=== PATIENT | female | born 1940 | race Caucasian/White ===

== ENCOUNTER 2017-12-11 19:57 | Emergency (ER) | payer OTHER ==
[2017-12-11 20:09] VITALS: BMI 25.1
[2017-12-11 20:34] LABS: BASOPHILS # (AUTO) 0.1 X10^3/uL (0.0-0.1); BASOPHILS % (AUTO) 0.7 % (0.2-1.0); EOSINOPHILS # (AUTO) 0.1 x10^3/uL (0.0-0.2); EOSINOPHILS % (AUTO) 1.6 % (0.9-2.9); HEMATOCRIT 40.6 % (36.0-47.0); LYMPHOCYTES # (AUTO) 1.3 X10^3/uL (1.3-2.9); LYMPHOCYTES % (AUTO) 14.4 % (21.0-51.0); MEAN CORPUSCULAR HEMOGLOBIN 30.5 pg (27.0-34.0); MEAN CORPUSCULAR HGB CONC 34.6 g/dL (33.0-35.0); MEAN CORPUSCULAR VOLUME 88.3 fL (80.0-100.0); MEAN PLATELET VOLUME 8.3 fL (7.4-11.0); MONOCYTES # (AUTO) 0.6 x10^3/uL (0.3-0.8); MONOCYTES % (AUTO) 6.3 % (0.0-13.0); PLATELET COUNT 255 X10^3/uL (150.0-450.0); RED BLOOD COUNT 4.61 X10^6/uL (3.5-5.4); RED CELL DISTRIBUTION WIDTH 13.9 % (11.6-16.5); WHITE BLOOD COUNT 9.2 X10^3/uL (3.6-10.0)
[2017-12-11 20:51] LABS: BLOOD UREA NITROGEN 19 mg/dL (7-18); CALCIUM 9.1 mg/dL (8.5-10.1); CARBON DIOXIDE 26.9 mmol/L (21-32); CHLORIDE 105 mmol/L (98-107); COR NA(FOR HYPERGLY) 142 mmol/L (136-145); CREATININE 1.28 mg/dL (0.55-1.02); SODIUM 141 mmol/L (136-145); TROPONIN I < 0.02 ng/mL (0-1.5); eGFR BLACK RACES 52 (>60); eGFR NON BLACK RACES 43 (>60)
[2017-12-11 20:53] LABS: ALANINE AMINOTRANSFERASE 27 Units/L (12-78); ALBUMIN 4.1 g/dL (3.4-5.0); ALKALINE PHOSPHATASE 92 Units/L (46-116); ASPARTATE AMINO TRANSFERASE 19 Units/L (15-37); CKMB % 1.6 % (<4); CREATINE KINASE 69 Units/L (26-192); CREATINE KINASE MB 1.1 ng/mL (0-4.0); MAGNESIUM 1.9 mg/dL (1.7-2.9); TOTAL PROTEIN 8.6 g/dL (6.4-8.2)
--- NOTE | 2017-12-11 20:53 | CT ---
HISTORY: Episode Study: CT brain without contrast Comparison: None Technique: Multiple axial images of the brain were obtained from the skull base to the vertex without administra tion of IV contrast. Dose reduction techniques including Automated Exposure Control (AEC) and adjust ment of mA and kV were utilized. Findings: There is atrophy and nonspecific white matter hypoattenuation likely related to microvascular ischemi c changes. Small hypodensities are noted in the region of the caudate head and bilateral internal cap sules suggesting old lacunar infarcts. No evidence of acute hemorrhage, midline shift, mass effect or abnormal extra-axial fluid collection. The ventricular system is symmetric and nondilated. The sof t tissues and osseous structures are unremarkable. The visualized paranasal sinuses are clear. IMPRESSION: 1. Cerebral volume loss and microvascular ischemic changes. No acute intracranial abnormality is iden tified. Reported By:
[2017-12-11] MEDS ORDERED: XYLOCAINE 1 % (PLAIN) ONE (21:03)
[2017-12-11 21:06] LABS: BILIRUBIN,URINE NEGATIVE (NEGATIVE); BLOOD/HEMOGLOBIN,URINE 4+ (NEGATIVE); GLUCOSE, URINE NEGATIVE (NEGATIVE); KETONES,URINE NEGATIVE (NEGATIVE); LEUKOCYTE ESTERASE ,URINE 2+ (NEGATIVE); NITRITES,URINE NEGATIVE (NEGATIVE); PROTEIN,URINE 3+ (NEGATIVE); UROBILINOGEN,URINE NORMAL (NORMAL)
[2017-12-11 21:15] LABS: APPEARANCE,URINE HAZY (CLEAR); COLOR,URINE YELLOW (YELLOW)
[2017-12-11 21:16] LABS: AMORPHOUS SEDIMENT,UR 2+ /HPF (NEGATIVE); BACTERIA,URINE 2+ /HPF (NEGATIVE); SQUAMOUS EPITHELIAL CELL,UR FEW /HPF (NEGATIVE)
[2017-12-11] MEDS ORDERED: NEOSPORIN OINT TOP ONE (21:27)
[2017-12-11] MEDS ORDERED: NEOSPORIN OINT ONE (21:32)
[2017-12-11] MEDS ORDERED: ADACEL TDaP IM ONE ×2 (21:35→21:36)
--- NOTE | 2017-12-11 21:41 | DR.GENAD ---
HPI - PCP Primary Care Physician: MARCELLUS - Complaint/Symptoms Chief Complaint Doctors Comments: History as stated. Chief Complaint:: PT TO ED WITH A SYNCOPAL EPISODE PT WAS FISHING AND PASSED OUT AFTER HOOKING HERSELF WITH A FISHHOOK IN THE LT HAND 3RD DIGIT PT STATES" WHEN IT HOOKED ME I GOT REAL WEAK AND FELT LIKE I WAS GOING TO BE SICK AND I PASSED OUT" - Source History Provided: Patient - Mode of Arrival Mode of Arrival: EMS - Timing Onset of Chief Complaint: 12/11/17 PMH - PMH Past Medical History: No Past Surgical History: No - Family History History of Family Medical Conditions: No - Social History Does patient currently use any type of tobacco product: No Have you used tobacco products in the last 12 months: No Type of Tobacco Use: None Does any household member use tobacco: No Alcohol Use: None Do you use any recreational Drugs:: No Lives With: Alone Lives Where: Home - infectious screening In the last 2 months have you had wt loss of >10#?: NO Have you had fever, night sweats or hemotysis?: No Have you traveled outside the country in the last 6 months?: No Isolation: Standard ROS - Review of Systems Eyes: No Symptoms Reported ENTM: No Symptoms Reported Respiratoy: No Symptoms Reported Cardiovascular: No Symptoms Reported Gastrointestinal/Abdominal: No Symptoms Reported Neurological: No Symptoms Reported Musculoskeletal: No Symptoms Reported Integumentary: No Symptoms Reported, Other (foreign body in 4th digit of left hand) Hematologic/Lymphatic: No Symptoms Reported Endocrine: No Symptoms Reported Psychiatric: No Symptoms Reported All Other Systems: Reviewed and Negative PE - Vital Signs Vitals: Temperature 98.2 F Pulse Rate 80 Respiratory Rate 20 Blood Pressure 138/66 O2 Sat by Pulse Oximetry 98 - General Limitations: No Limitations General Appearance: Alert, In No Apparent Distress - Head Head Exam: Normal Inspection, Atraumatic - Eyes Eye exam: Normal Appearance, PERRL, EOMI - ENT ENT Exam: Normal Exam External Ear Exam: Normal External Inspection TM/Canal Exam: Bilateral Normal Nose Exam: Normal Nose Exam Mouth Exam: Normal Inspection Throat Exam: Normal Inspection - Neck Neck Exam: Normal Inspection - Chest Chest Inspection: Normal Inspection - Respiratory Respiratory Exam: Normal Lung Sounds Bilat Respiratory Exam: Bilateral Clear to Auscultation - Cardiovascular Cardiovascular Exam: Regular Rate, Normal Rhythm - Abdominal Exam Abdominal Exam: Normal Inspection, Normal Bowel Sounds Abdominal Tenderness: negative: RUQ, RLQ, LUQ, LLQ, Epigastrium, Suprapubic, Diffuse, Mild, Moderate, Severe, Other - Extremities Extremities Exam: Normal Inspection, Other (Fish hoot imbeded in 4th digit of left hand proximally) - Back Back Exam: Normal Inspection - Neurologic Neurological Exam: Alert, Oriented X3, CN II-XII Intact - Psychiatric Psychiatric Exam: Normal Affect, Normal Mood - Skin Skin Exam: Warm, Dry, Intact ROR - Labs Reviewed Result Diagrams: 12/11/17 20:23 12/11/17 20: Laboratory: WBC 9.2 X10^3/uL (3.6-10.0) 12/11/17 20: RBC 4.61 X10^6/uL (3.5-5.4) 12/11/17 20: Hgb 14.0 g/dL (12.0-16.0) 12/11/17 20: Hct 40.6 % (36.0-47.0) 12/11/17: MCV 88.3 fL (80.0-100.0) 12/11/17 20: MCH 30.5 pg (27.0-34.0) 12/11/17: MCHC 34.6 g/dL (33.0-35.0) 12/11/17: RDW 13.9 % (11.6-16.5) 12/11/17: Plt Count 255 X10^3/uL (150.0-450.0) 12/11/17: MPV 8.3 fL (7.4-11.0) 12/11/17: Neut % (Auto) 77.0 % (42.0-75.0) H 12/11/17: Lymph % (Auto) 14.4 % (21.0-51.0) L 12/11/17: [place] % (Auto) 6.3 % (0.0-13.0) 12/11/17 20: Eos % (Auto) 1.6 % (0.9-2.9) 12/11/17: Baso % (Auto) 0.7 % (0.2-1.0) 04/02/18 20:23 Neut # (Auto) 7.0 x10^3/uL (2.2-4.8) H 12/11/17 20:23 Lymph # (Auto) 1.3 X10^3/uL (1.3-2.9) 12/11/17 20:23 [place] # (Auto) 0.6 x10^3/uL (0.3-0.8) 12/11/17 20:23 Eos # (Auto) 0.1 x10^3/uL (0.0-0.2) 12/11/17 20:23 Baso # (Auto) 0.1 X10^3/uL (0.0-0.1) 12/11/17 20:23 Absolute Nucleated RBC 0.1 /100WBC 12/11/17 20: INR Target Range - 12/11/17: INR 1.01 (0.8-1.3) 12/11/17 20:23 APTT 30.3 SECONDS (22.9-36.5) 12/11/17 20: PTT Comment - 12/11/17 20:23 Sodium 141 mmol/L (136-145) 12/11/17 20:23 Corrected Sodium 142 mmol/L (136-145) 12/11/17 20:23 Potassium 4.1 mmol/L (3.5-5.1) 12/11/17 20:23 Chloride 105 mmol/L (98-107) 12/11/17 20:23 Carbon Dioxide 26.9 mmol/L (21-32) 12/11/17 20:23 BUN 19 mg/dL (7-18) H 12/11/17 20:23 Creatinine 1.28 mg/dL (0.55-1.02) H 12/11/17 20:23 Est GFR (MDRD) Af Amer 52 (>60) L 12/11/17 20:23 Est GFR (MDRD) Non-Af 43 (>60) L 12/11/17 20:23 Glucose 122 mg/dL (65-99) H 12/11/17 20:23 Calcium 9.1 mg/dL (8.5-10.1) 12/11/17 20:23 Corrected Calcium TNP 12/11/17 20:23 Magnesium 1.9 mg/dL (1.7-2.9) 12/11/17 20:23 Total Bilirubin 0.60 mg/dL (0.2-1.0) 12/11/17 20:23 AST 19 Units/L (15-37) 12/11/17 20:23 ALT 27 Units/L (12-78) 12/11/17 20:23 Alkaline Phosphatase 92 Units/L (46-116) 12/11/17 20:23 Creatine Kinase 69 Units/L (26-192) 12/11/17 20:23 CK-MB (CK-2) 1.1 ng/mL (0-4.0) 12/11/17 20:23 CK/CKMB % Calc 1.6 % (<4) 12/11/17 20: Troponin I < 0.02 ng/mL (0-1.5) 12/11/17 20:23 Total Protein 8.6 g/dL (6.4-8.2) H 12/11/17 20:23 Albumin 4.1 g/dL (3.4-5.0) 12/11/17 20: Globulin 4.5 g/dL (2.5-4.5) 12/11/17 20:23 Albumin/Globulin Ratio 0.9 Ratio (1.1-2.1) L 12/11/17 20:23 Specimen Type Clean catch urine 12/11/17 20:53 Urine Color Yellow (YELLOW) 12/11/17 20:53 Urine Appearance Hazy (CLEAR) 12/11/17 20:53 Urine pH 6.0 (5.0 - 8.0) 12/11/17 20:53 Ur Specific [place] 1.010 (1.000-1.030) 12/11/17 20:53 Urine Protein 3+ (NEGATIVE) 12/11/17 20:53 Urine Glucose (UA) Negative (NEGATIVE) 12/11/17 20:53 Urine Ketones Negative (NEGATIVE) 12/11/17 20:53 Urine Occult Blood 4+ (NEGATIVE) 12/11/17 20:53 Urine Nitrite Negative (NEGATIVE) 12/11/17 20:53 Urine Bilirubin Negative (NEGATIVE) 12/11/17 20:53 Urine Urobilinogen Normal (NORMAL) 12/11/17 20:53 Ur Leukocyte Esterase 2+ (NEGATIVE) 12/11/17 20:53 Urine RBC 5-10 /HPF (NONE SEEN) 12/11/17 20:53 Urine WBC 10-20 /HPF (NONE SEEN) 12/11/17 20:53 Ur Squamous Epith Cells Few /HPF (NEGATIVE) 12/11/17 20:53 Amorphous Sediment 2+ /HPF (NEGATIVE) 12/11/17 20:53 Urine Bacteria 2+ /HPF (NEGATIVE) 12/11/17 20:53 Ur Culture Indicated? Yes/culture set up 12/11/17 20:53 Procedures - Procedure Comments Procedures: Local anesthesia with 1% lidocaine, removed w/o difficulity - Splinting Pre-Made Type: metal (fish hook 4th digit of left hand -) - Diagnosis Discharge Problem: foreign body left hand 4th digit - Discharge Plan Condition: Stable - Follow ups/Referrals Follow ups/Referrals: VERITO GERMAIN [Primary Care Provider] - 3 days - Instructions
[2017-12-11 21:47] VITALS: BP 160/77
--- NOTE | 2017-12-11 22:28 | RAD ---
HISTORY: Syncopal episode Study: Single view chest Comparison:None Findings: Single portable view is submitted. No infiltrate, effusion or pneumothorax identified. The cardiac an d mediastinal contours are within normal limits. The soft tissues are unremarkable. IMPRESSION: 1. No acute cardiopulmonary abnormality. Reported By:
== END 2017-12-11 21:58 | disposition home or self-care (01) ==
LOC: ER 20:04
PROC: 0RC Upper Joints, Extirpation (ICD-10-PCS; principal; 2017-12-11)
DX: S60.455A Superficial foreign body of left ring finger, initial encounter (principal); B96.29 Other Escherichia coli [E. coli] as the cause of diseases classified elsewhere; W45.8XXA Other foreign body or object entering through skin, initial encounter; Y92.9 Unspecified place or not applicable
CPT/HCPCS: 10120; 36415; 70450; 71045; 80053; 81001; 82550; 82553; 83735; 84484; 85025; 85610; 85730; 87086; 87088; 87186; 90471; 93005; 93010; 96365; 99282; 99283; J2001